=== PATIENT | male | born 1980 | race Caucasian/White ===

== ENCOUNTER 2016-04-11 01:33 | Emergency (ER) | payer OTHER ==
[~2016-04-11] VITALS: Ht 180.3 cm; Wt 114.0 kg
[2016-04-11 01:50] VITALS: TEMP 36.8; Ht 180.3 cm; Wt 114.0 kg
[2016-04-11] MEDS ORDERED: MoRPHine SULFATE 10 MG/ML CARP/VIAL IV STA ×2 (01:57→04:07)
[2016-04-11] MEDS ORDERED: ONDANSETRON INJ 2 MG/ML 2 ML VIAL IV STA (01:57)
[2016-04-11] MEDS ORDERED: SODIUM CHLORIDE 0.9% 1000ML 1,000 ML IV ONE ×2 (02:00→04:45)
[2016-04-11 02:26] LABS: BASO % 0.5 %; BASO ABS # 0.04 K/uL (0-0.2); COMPLETE YES; EOS % 1.8 %; HEMATOCRIT 44.7 % (42-52); IG% 0.3 %; LYMPH % 18.1 %; LYMPH ABS # 1.39 K/uL (1.2-3.4); MEAN CELL VOLUME 87.3 fL (80-100); MEAN CORPUSCULAR HEMOGLOBIN 30.7 pg (25-34); MEAN CORPUSCULAR HGB CONC 35.1 g/dl (32-36); MEAN PLATELET VOLUME 9.8 fL (7.4-10.4); MONO % 8.2 %; NEUT % 71.1 %; PLATELET COUNT 200 K/uL (130-400); RED BLOOD COUNT 5.12 M/uL (4.7-6.1); WHITE BLOOD COUNT 7.68 K/uL (4.8-10.8)
[2016-04-11] MEDS ORDERED: ATEN50TA8 PO (02:29)
[2016-04-11] MEDS ORDERED: BUSP-8 PO (02:29)
[2016-04-11 02:53] LABS: ALB/GLOB RATIO 1.1 (0.9-2); BUN/CREATININE RATIO 11.3 (10-20); CALCIUM 8.7 mg/dl (8.5-10.1); CREATININE 1.3 mg/dl (0.60-1.40)
[2016-04-11 03:00] LABS: MANUAL MICROSCOPIC REQUIRED? YES; URINE APPEARANCE SL CLOUDY (CLEAR); URINE BILIRUBIN NEG (NEG); URINE COLOR YELLOW; URINE NITRITE NEG (NEG); URINE PH 5.5 (4.5-7.5); URINE SPECIFIC GRAVITY >= 1.030 (1.000-1.030); UROBILINOGEN NEG (NEG)
[2016-04-11 03:05] LABS: REVIEW REQ? NO
[2016-04-11 03:06] LABS: URINE RBC 0-4 /hpf (0-4); URINE WBC 0 /hpf (0-5)
[2016-04-11 03:07] LABS: URINE BACTERIA NEG (NEG); ZZUR CULT IF INDIC CLEAN CATCH NO
[2016-04-11] MEDS ORDERED: ONDANSETRON HOME PACK 4MG OD TAB PO ONE (04:15)
[2016-04-11] MEDS ORDERED: OXYCODONE IR HOME PACK PO ONE (04:15)
[2016-04-11] MEDS ORDERED: ONDA4TAB10 SL (04:16)
[2016-04-11] MEDS ORDERED: OXYC1TAB3 PO (04:16)
[2016-04-11] MEDS ORDERED: TAMS0.4C38 PO (04:16)
[2016-04-11] MEDS ORDERED: HYDROmorphone INJ 1 MG/ML SYR IV STA (04:34)
[2016-04-11 05:54] VITALS: BP 143/97; PULSE 63; O2SAT 96
--- NOTE | 2016-04-11 07:40 | EMERGENCY ROOM VISIT NOTE ---
History First contact with patient: 01:52 Chief Complaint: ABDOMINAL PAIN Stated Complaint: SEVER LLQ PAIN AND BACK SPAS Nursing Triage Summary: pt c/o abd pain and n/v since midnight History of Present Illness The patient is a 36 year old male who presents to the Emergency Room with complaints of right-sided back pain that started approximately 2 hours ago. The patient states that he was laying on his couch when he developed a very sharp stabbing pain that radiated to his right groin. He states that he feels like he needs to use the bathroom, but is not having significant urine output. He did have one episode of vomiting when his pain increased. He states there is a baseline 8/10 pain that we'll have intermittent episodes of 10/10 pain. The patient does not have a history of kidney stones or abdominal surgery. He has not had fever or chills. He has not taken anything [id number] for his discomfort. Review of Systems More than 10 systems were reviewed and otherwise negative with the exception of history of present illness. Past Medical/Surgical History No chronic medical disease Family History No pertinent family history Social History Smoking Status: Never Smoker Housing Status: lives with family Current/Historical Medications Scheduled Atenolol (Tenormin), 50 MG PO DAILY Ondasetron Odt (Zofran Odt), 4 MG SL Q6H Oxycodone Immediate Rel Tab (Roxicodone Ir), 1-2 TAB PO Q6 Tamsulosin Hcl (Flomax), 0.4 MG PO DAILY Scheduled PRN Buspirone Hcl (Buspirone Hcl), 10 MG PO DAILY PRN for Anxiety Allergies Coded Allergies: Erythromycin (Verified Allergy, Unknown, vomit, 04/11/16) Physical Exam Vital Signs Date Time Temp Pulse Resp B/P Pulse Ox O2 Delivery O2 Flow Rate FiO2 04/11/16 05:54 63 18 143/97 96 04/11/16 04:18 60 18 141/89 93 Room Air 04/11/16 01:50 36.8 83 18 137/92 96 Room Air Pain Rating (0-10): 3.0 Physical Exam VITALS: Vitals are noted on the nurse's note and reviewed by myself. Vital signs stable. GENERAL: Well-developed, well-nourished, white male who appears in mild discomfort. HEAD: Normocephalic atraumatic. HEART: Regular rate and rhythm without murmurs gallops or rubs. LUNGS: Clear to auscultation bilaterally without wheezes, rales or rhonchi. No retractions or accessory muscle use. ABDOMEN: Positive normal bowel sounds x 4. Soft, nontender, without masses or organomegaly. No guarding or rebound tenderness. No CVA tenderness. MUSCULOSKELETAL: No muscle atrophy, erythema, or edema noted. Full range of motion without joint tenderness in all extremities. Medical Decision & Procedures ER Provider Diagnostic Interpretation: Preliminary Findings Only See Final Report For Complete Findings CT ABDOMEN & PELVIS: 2 mm stone at distal right ureter (approximately 1 cm from the UVJ) with minimal right hydroureteronephrosis Hepatic steatosis. Straightening of lumbar lordosis. 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 Facet arthropathy and foraminal osteophytes cause mild to moderate T9-T10 left foraminal, moderate T9-T10 canal stenosis and mild T10-T11 canal stenosis. Laboratory Results 04/11/16 02:15 Red Blood Count 5.12, Mean Corpuscular Volume 87.3, Mean Corpuscular Hemoglobin 30.7, Mean Corpuscular Hemoglobin Concent 35.1, Mean Platelet Volume 9.8, Neutrophils (%) (Auto) 71.1, Lymphocytes (%) (Auto) 18.1, Monocytes (%) (Auto) 8.2, Eosinophils (%) (Auto) 1.8, Basophils (%) (Auto) 0.5, Neutrophils # (Auto) 5.46, Lymphocytes # (Auto) 1.39, Monocytes # (Auto) 0.63, Eosinophils # (Auto) 0.14, Basophils # (Auto) 0.04 04/11/16 02:15 Test 04/11/16 02:15 04/11/16 02:25 White Blood Count 7.68 K/uL (4.8-10.8) Red Blood Count 5.12 M/uL (4.7-6.1) Hemoglobin 15.7 g/dL (14.0-18.0) Hematocrit 44.7 % (42-52) Mean Corpuscular Volume 87.3 fL (80-100) Mean Corpuscular Hemoglobin 30.7 pg (25-34) Mean Corpuscular Hemoglobin Concent 35.1 g/dl (32-36) Platelet Count 200 K/uL (130-400) Mean Platelet Volume 9.8 fL (7.4-10.4) Neutrophils (%) (Auto) 71.1 % Lymphocytes (%) (Auto) 18.1 % Monocytes (%) (Auto) 8.2 % Eosinophils (%) (Auto) 1.8 % Basophils (%) (Auto) 0.5 % Neutrophils # (Auto) 5.46 K/uL (1.4-6.5) Lymphocytes # (Auto) 1.39 K/uL (1.2-3.4) Monocytes # (Auto) 0.63 K/uL (0.11-0.59) Eosinophils # (Auto) 0.14 K/uL (0-0.5) Basophils # (Auto) 0.04 K/uL (0-0.2) RDW Standard Deviation 39.7 fL (36.4-46.3) RDW Coefficient of Variation 12.4 % (11.5-14.5) Immature Granulocyte % (Auto) 0.3 % Immature Granulocyte # (Auto) 0.02 K/uL (0.00-0.02) Anion Gap 12.0 mmol/L (3-11) Est Creatinine Clear Calc Drug Dose 99.9 ml/min Estimated GFR () 80.8 Estimated GFR (Non- 69.7 BUN/Creatinine Ratio 11.3 (10-20) Calcium Level 8.7 mg/dl (8.5-10.1) Total Bilirubin 0.6 mg/dl (0.2-1) Aspartate Amino Transf (AST/SGOT) 25 U/L (15-37) Alanine Aminotransferase (ALT/SGPT) 52 U/L (12-78) Alkaline Phosphatase 62 U/L (45-117) Total Protein 7.4 gm/dl (6.4-8.2) Albumin 3.8 gm/dl (3.4-5.0) Globulin 3.6 gm/dl (2.5-4.0) Albumin/Globulin Ratio 1.1 (0.9-2) Lipase 160 U/L (73-393) Chemistry Specimen Hemolysis Urine Color YELLOW Urine Appearance SL CLOUDY (CLEAR) Urine pH 5.5 (4.5-7.5) Urine Specific [place] >= 1.030 (1.000-1.030) Urine Protein 2+ (NEG) Urine Glucose (UA) NEG (NEG) Urine Ketones NEG (NEG) Urine Occult Blood TRACE (NEG) Urine Nitrite NEG (NEG) Urine Bilirubin NEG (NEG) Urine Urobilinogen NEG (NEG) Urine Leukocyte Esterase NEG (NEG) Urine RBC 0-4 /hpf (0-4) Urine WBC 0 /hpf (0-5) Urine Epithelial Cells 0-5 /lpf (0-5) Urine Calcium Oxalate Crystals PRESENT (NONE PRSENT) Urine Bacteria NEG (NEG) Medications Administered Medications (Trade) Dose Ordered Sig/Sofia Route Start Time Stop Time Status Last Admin Dose Admin Sodium Chloride (Nss 1000ml) 1,000 ml @ 999 mls/hr Q1H1M ONCE IV 04/11/16 02:00 04/11/16 03:00 DC 04/11/16 02:23 999 MLS/HR Morphine Sulfate (MoRPHine SULFATE INJ) 8 mg NOW STAT IV 04/11/16 01:57 04/11/16 01:59 DC 04/11/16 02:23 8 MG Ondansetron HCl (Zofran Inj) 4 mg NOW STAT IV 04/11/16 01:57 04/11/16 01:59 DC 04/11/16 02:22 4 MG Morphine Sulfate (MoRPHine SULFATE INJ) 8 mg NOW STAT IV 04/11/16 04:07 04/11/16 04:09 DC 04/11/16 04:17 8 MG Hydromorphone HCl 1 mg 1 mg NOW STAT IV 04/11/16 04:34 04/11/16 04:35 DC 04/11/16 04:46 1 MG Sodium Chloride (Nss 1000ml) 1,000 ml @ 999 mls/hr Q1H1M ONCE IV 04/11/16 04:45 04/11/16 05:45 DC 04/11/16 04:48 999 MLS/HR ED Course Physical exam and history were performed. Nursing notes and EMR were reviewed. Patient appears to have right flank pain for the past few hours. IV access was established and labs were obtained. The patient was given IV morphine and Zofran for his symptoms. He was sent to CT scan out of concern for intra- abdominal process. The patient's motor is as above and was reviewed. He does not have significantly elevated white blood cell count, anemia, bandemia, or gross electrolyte imbalance. The patient's urine does not show signs of infection, but does have calcium oxalate crystals and blood. CT scan does confirm a 2 mm distal with ureteral calculi which clinically does correlate with the patient's discomfort. I discussed the patient's findings at length with him and his family. The patient did need additional IV medication for pain, but he does appear stable for discharge home based on size and location of his stone. The patient will be given a course of Flomax, Zofran, and OxyIR. He is to follow with urology for further care and management. He was otherwise invited back to the ER with any new, worsening, or concerning symptoms. The chart was completed utilizing [employer] Voice Recognition Software. Grammatical errors, random word insertions, pronoun errors, and incomplete sentences are an occasional consequence of this system due to software limitations, ambient noise, and hardware issues. Any formal questions or concerns about the content, text, or information contained within the body of this dictation should be directly addressed to the provider for clarification. . Medical Decision Differential diagnosis: Etiologies such as renal colic, appendicitis, diverticulitis, mesenteric ischemia, aortic pathology, infections, inflammatory bowel disease, PUD, biliary pathology, UTI, as well as others were entertained. Impression Primary Impression: Right ureteral calculus Departure Information Dispostion Home / Self-Care Condition GOOD Prescriptions Tamsulosin Hcl (FLOMAX) 0.4 Mg Cap 0.4 MG PO DAILY for 7 Days, #7 CAP Prov: Leandro Landry PA-C 04/11/16 Ondasetron Odt (ZOFRAN ODT) 4 Mg Tab 4 MG SL Q6H for Nausea, #12 TAB Prov: Leandro Landry PA-C 04/11/16 Oxycodone Immediate Rel Tab (ROXICODONE IR) 5 Mg Tab 1-2 TAB PO Q6, #24 TAB Prov: Leandro Landry PA-C 04/11/16 Referrals Nidhi Bateman MD Forms Call Back Authorization, HOME CARE DOCUMENTATION FORM, IMPORTANT VISIT INFORMATION Patient Instructions My [facility] Additional Instructions You were seen and evaluated today on an emergency basis only. This is not a substitute for, or an effort to provide, complete comprehensive medical care. It is not possible to recognize and treat all injuries or illnesses in a single emergency department visit. For this reason it is recommended that you followup with Urology, Dr. Bateman office, by telephone on Tuesday to arrange a follow-up visit this week. For baseline pain relief you may alternate ibuprofen and acetaminophen every 4 hours for pain control. Take 600 mg ibuprofen (Advil) and then 4 hours later take 1000 mg acetaminophen (Tylenol). Do not take more than 3000 mg acetaminophen in a single day. Oxycodone (OxyIR) 5mg: Take ONE or TWO pills every SIX hours for breakthrough pain. Avoid alcohol, operating machinery or dangerous equipment, working on ladders or roofs, DRIVING, or situations where being under the influence may be dangerous. It is recommended to use an [id number] stool softener such as Colace, 100mg twice daily while taking this medication to avoid constipation. Zofran 1 tablet every 6 hrs as needed for nausea. Take Flomax once daily. You are welcome to return to the emergency department anytime with new, worsening, or concerning symptoms.
--- NOTE | 2016-04-11 08:46 | DIAGNOSTIC IMAGING REPORT ---
CT OF THE ABDOMEN AND PELVIS WITHOUT CONTRAST CLINICAL HISTORY: Right flank pain to right lower quadrant. COMPARISON STUDY: No previous studies for comparison. TECHNIQUE: Axial images of the abdomen and pelvis were obtained without IV contrast. Images were reviewed in the axial, sagittal, and coronal planes. FINDINGS: A 3 mm distal right ureteral calculus results in minimal right hydroureteronephrosis. There is a punctate calculus within the lower pole of the left kidney. There is fatty infiltration of the liver. Unenhanced images of the spleen, adrenal glands and pancreas are normal. There is no evidence for a bowel obstruction. The appendix is normal. No lymphadenopathy is present. There are no suspicious osseous lesions. IMPRESSION: 1. 3 mm distal right ureteral calculus with minimal right hydroureteronephrosis. 2. Punctate left renal calculus. 3. Fatty liver. Electronically signed by: Cb Lawrence M.D. 04/11/2016 8:44 AM Dictated Date/Time: 04/11/2016 8:41 AM
== END 2016-04-11 05:49 | disposition home or self-care (01) ==
LOC: C.EDB 01:35
DX: N20.1 Calculus of ureter (principal); Z79.899 Other long term (current) drug therapy